=== PATIENT | female | born 1970 | race Caucasian/White ===

== ENCOUNTER → 2021-07-05 08:06 | Outpatient (CLI) | payer MEDICAID, SELFPAY ==
--- NOTE | 2021-07-05 08:10 | DI.US.S_ITS ---
PROCEDURE: US PELVIC COMPLETE INDICATIONS: INTRAUTERINE DEVICE PLACEMENT. UNABLE TO REMOVE. TECHNIQUE: Real-time scanning was performed of the pelvic organs, with image documentation. Additional endovaginal scanning was necessary due to incomplete visualization of the adnexal and endometrial structures by transabdominal scanning. COMPARISON: None. FINDINGS: Uterus: Uterus is normal in size at 7.4 x 5.3 x 4.7 cm. The endometrium measures 4.0 mm in combined thickness. Intrauterine device abnormally position within the lower uterine segment and cervix. Ovaries: 2.3 cm simple right paraovarian cyst. 5.5 x 6.5 x 4.2 cm complex, heterogeneous striated. Appearing mass present within the right adnexa suspicious for ovarian dermoid. Other: No pathologic free abdominal or pelvic fluid. IMPRESSION: 1. Abnormal positioning of intrauterine device within the lower uterine segment and cervix. 2. 6.5 cm right adnexal mass suspicious for ovarian dermoid. If indicated, pre and post contrast gynecologic protocol MRI could be performed for further assessment. Dictated by: Davey Parker Debi Interpreted: Madan Hagan MD on 07/05/2021 at 14:50 Transcribed by: [email or web address] on 07/05/2021 at 14:53 Approved by: Madan Hagan M.D. on 07/05/2021 at 17:20
== END ==
PROVIDERS: Family Provider Family Medicine; PCP Physician Assistant Medical; Referring Provider Obstetrics & Gynecology; Visit Provider Obstetrics & Gynecology
DX: T83.9XXA Unspecified complication of genitourinary prosthetic device, implant and graft, initial encounter (principal)
CPT/HCPCS: 76830; 76856